=== PATIENT | female | born 1955 | race Hispanic/Latino ===

== ENCOUNTER → 2019-03-20 | Day surgery (SDC) | payer MEDICARE, OTHER ==
[~2019-03-20] MED LIST: ALENDRONATE SOD70 MG PO; FENTANYL CITRATE/PF 100MCG/2 ML INJ ONE; MIDAZOLAM HCL 2 MG/2 ML VIAL ONE; OR PHACO EYE KIT ONE; PREOP PHACO EYE KIT ONE; SIMVASTATIN40 MG PO
[2019-03-20 13:35] VITALS: BP 134/87
--- OUTSIDE RECORDS SUMMARY | 2019-03-20 19:35 | XMS REPORT ---
Author Author [facility] Address Unknown Phone Unavailable Care Team Providers Care Special Technical Operations Officer Name Role Phone Unavailable Unavailable Payers Payer Name Policy Type Policy Number Effective Date Expiration Date Problems This patient has no known problems. Allergies, Adverse Reactions, Alerts Allergy Name Allergy Type Status Severity Reaction(s) Onset Date Inactive Date Treating Clinician Comments No Known Allergies DA Active U 2019-02-28 00:00:00 Medications This patient has no known medications. Encounters Start Date/Time End Date/Time Encounter Type Admission Type Attending Clinicians Care Facility Care Department Encounter ID 2017-01-21 13:15:55 2017-01-21 13:15:55 Outpatient [facility] [id number] Results Test Description Test Time Test Comments Text Results Atomic Results Result Comments STREPTOCOCCUS PCR SCREEN 2019-03-01 01:16:00 STREPTOCOCCUS DYSGALACTIAE (test code=STREPGC) NEGATIVE FOR G/C NEGATIVE STREPA MOLECULAR (test code=STREPAMOL) NEGATIVE FOR GRP A NEGATIVE - XR CHEST 2 [id number] 11:21:00 Name: SARAH TRUONG [facility] : 1955 Age/S:63 /F [address] [facility] Unit#:[id number] Loc: [place] [address] Phys: Erin Khanna MD Dis Date: PHONE #: [phone] Status: DEP ER FAX #: [phone] Exam Date: 02/28/2019 Reason: cough EXAMS: CPT CODE: [id number] XR CHEST 2 V 58315 HISTORY: Cough. Location: [facility]. COMPARISON: None available. AP and lateral view of the chest: No acute infiltrates, effusion or congestion. Mild cardiomegaly. IMPRESSION: No acute infiltrates, effusion or congestion. at 1121 Reported and signed by: Donny Mora M.D. CC: Erin Khanna MD Technologist: JACKIE HU RT(R),CT Trnscrpt Data: 02/28/2019 (112) [email or web address] Orig Print D/T: S: 02/28/2019 (1124) PAGE 1 Signed Report - XR CHEST 2 [id number] 11:21:00 Name: GABBIE TRUONG [facility] : 1955 Age/S:63 /F [address] [facility] Unit#:[id number] Loc: [place] [address] Phys: Rosemary Khanna MD Dis Date: PHONE #: [phone] Status: REG ER FAX #: [phone] Exam Date: 02/28/2019 Re ason: cough EXAMS: CPT CODE: [id number] XR CHEST 2 V [id number] HISTORY: Cough. Locati on: [facility]. COMPARISON: None available. AP and lateral view of the chest: No acute infiltrates, effusion or congestion. M ild cardiomegaly. IMPRESSION: No acute infiltr ates, effusion or congestion. at 1121 Reported and signed by: Donny Mora M.D. CC: Erin Khanna MD Technologist: JACKIE HU, RT(R),CT Trnscrpt Data: 02/28/2019 (1121) [email or web address] Orig Print D/T: S: 02/28/2019 (1123) PAGE 1 Signed Report
== END | disposition home or self-care (01) ==
LOC: OR 09:23
PROVIDERS: ATTEND Ophthalmology
DX: H25.12 Age-related nuclear cataract, left eye (principal); E78.5 Hyperlipidemia, unspecified
CPT/HCPCS: 66984; J2250; J3010; V2632

== ENCOUNTER → 2019-04-11 | Outpatient (CLI) | payer MEDICARE, OTHER ==
[~2019-04-11] MED LIST changes: -FENTANYL CITRATE/PF 100MCG/2 ML INJ ONE; -MIDAZOLAM HCL 2 MG/2 ML VIAL ONE
[2019-04-11 12:59] LABS: BASOPHILS % 0.4 % (0.0-1.0); EOSINOPHILS # (AUTO) 0.1 (0.0-0.4); EOSINOPHILS % 0.7 % (0.0-6.0); HEMATOCRIT 39.7 % (34.2-44.1); HEMOGLOBIN 13.4 g/dL (12.0-16.0); LYMPHOCYTES # (AUTO) 2.3 (1.0-3.2); LYMPHOCYTES % 33.5 % (18.0-39.1); MEAN CORPUSCULAR HEMOGLOBIN 29.1 pg (28-32); MEAN CORPUSCULAR HGB CONC 33.8 g/dL (31-35); MEAN CORPUSCULAR VOLUME 86.3 fL (81-99); MONOCYTES # (AUTO) 0.5 (0.2-0.8); MONOCYTES % 7.9 % (4.4-11.3); NEUTROPHILS # (AUTO) 3.9 (2.1-6.9); NEUTROPHILS % 57.4 % (38.7-80.0); PLATELET COUNT 274 x10e3/uL (140-360); RED CELL DISTRIBUTION WIDTH 13.2 % (11.7-14.4)
== END ==
LOC: DX 14:02 → EDSTATUS 04-17 12:30
PROVIDERS: ATTEND Ophthalmology
DX: Z01.818 Encounter for other preprocedural examination (principal); H25.11 Age-related nuclear cataract, right eye; Z53.8 Procedure and treatment not carried out for other reasons
CPT/HCPCS: 36415; 85025